=== PATIENT | male | born 1955 | race Caucasian/White ===

== ENCOUNTER 2023-06-03 02:24 | Emergency (ER) | payer OTHER ==
[2023-06-03] MEDS: Acetaminophen 500 MG Tab PO ONE (03:42)
== END 2023-06-03 11:35 | disposition home or self-care (01) ==
LOC: JP.ED 02:24
DX: F10.120 Alcohol abuse with intoxication, uncomplicated (principal); Z88.0 Allergy status to penicillin; Z88.8 Allergy status to other drugs, medicaments and biological substances; Z79.51 Long term (current) use of inhaled steroids; Z79.82 Long term (current) use of aspirin; Z79.899 Other long term (current) drug therapy; Y90.9 Presence of alcohol in blood, level not specified
CPT/HCPCS: 36415; 80307; 99284; A9270